=== PATIENT | female | born 1950 | race Caucasian/White ===

== ENCOUNTER 2021-10-31 13:30 | Inpatient (IN) ==
[2021-10-31] MEDS ORDERED: Naloxone 0.4 MG/ML INJ IVP PRN ×2 (16:12→19:42)
[2021-10-31] MEDS ORDERED: *HR* Promethazine 25 MG/ML VIAL IM PRN (16:12)
[2021-10-31] MEDS ORDERED: Ondansetron 4 MG/2 ML VIAL IVP PRN ×2 (16:12→19:42)
[2021-10-31] MEDS ORDERED: *HR* FentaNYL (PF) 100 MCG/2 ML VIAL IVP PRN (18:22)
[2021-10-31] MEDS ORDERED: Ketorolac 30 MG/ML VIAL IVP PRN (18:22)
[2021-10-31] MEDS ORDERED: *HR* HYDROcodone/Acet 7.5/325 mg TABLET PO PRN (18:22)
[2021-10-31] MEDS ORDERED: *HR* Propofol 200 MG/20 ML VIAL IVP ONE (18:42)
[2021-10-31] MEDS ORDERED: Ondansetron 4 MG/2 ML VIAL ONE (18:43)
[2021-10-31] MEDS ORDERED: Lidocaine -MPF 2% 5 ML VIAL ONE (18:43)
[2021-10-31] MEDS ORDERED: Iopamidol - 300 50 ML VIAL ONE (18:46)
[2021-10-31] MEDS ORDERED: *HR* FentaNYL (PF) 100 MCG/2 ML VIAL ONE (19:25)
[2021-10-31] MEDS ORDERED: *HR* Succinylcholine 200 MG/10 ML VIAL IVP ONE (19:26)
[2021-10-31] MEDS ORDERED: Lidocaine HCL 4 ML Topical Solution (Laryng-O-Jet Kit Sterile Pak) TP ONE (19:39)
[2021-10-31] MEDS ORDERED: Albuterol 2.5 MG/3 ML NEBULIZER IH PRN (19:42)
[2021-10-31] MEDS ORDERED: Nitroglycerin 0.4 MG TAB.SUBL SL PRN (19:42)
[2021-10-31] MEDS ORDERED: Ipratropium Neb 0.5 MG NEBULIZER IH PRN (19:42)
[2021-10-31] MEDS ORDERED: CeFAZolin Syr 2,000MG/20 ML 2,000 MG/20 ML SYRINGE IVPB ONE (19:45)
[2021-10-31] MEDS ORDERED: Acetaminophen IV 1,000 MG/100 ML BAG IVPB ONE (19:52)
[2021-10-31] MEDS ORDERED: *HR* Labetalol 20 MG/4 ML SYRINGE IVP ONE (21:06)
[2021-10-31] MEDS ORDERED: Hyoscyamine SL 0.125 MG TAB.SUBL SL ONE (21:30)
[2021-10-31] MEDS: 0.9 % Sodium Chloride 1,000 ML IVC SCH ×2 (22:31)
[2021-11-01] MEDS: 0.9 % Sodium Chloride 1,000 ML IVC SCH ×4 (00:55→13:49)
[2021-11-01 01:40] LABS: Basophils % 0.2 %; Hematocrit 37.6 % (35.3-44.9); Hemoglobin 12.1 g/dL (11.5-15.4); Immature Granulocytes % 0.5 % (0-4); Lymphocytes # 0.4 K/mcL (0.6-4.6); Lymphocytes % 3.1 %; Mean Corpuscular HGB Conc 32.2 g/dL (31.6-35.5); Mean Corpuscular Hemoglobin 29.7 pg (28.0-33.3); Mean Corpuscular Volume 92.2 fL (83.0-100.0); Mean Platelet Volume 10.1 fL (9.4-12.4); Monocytes # 0.5 K/mcL (0.0-1.3); Monocytes % 4.1 %; Neutrophils # 11.7 K/mcL (1.6-8.9); Platelet Count 275 K/mcL (140-400); Red Blood Count 4.08 M/mcL (3.82-4.97); Red Cell Distribution Width 12.1 % (11.5-14.5); Segmented Neutrophils % 92.1 %; White Blood Count 12.7 K/mcL (4.3-11.1)
[2021-11-01 02:00] LABS: Potassium 3.4 mEq/L (3.5-5.1)
[2021-11-01 02:01] LABS: Albumin 3.2 g/dL (3.5-5.7); Bilirubin,Total 0.4 mg/dL (0.3-1.0); Calcium 8.2 mg/dL (8.6-10.3); Globulin 3.3 g/dL (2.4-3.5); Total Protein 6.5 g/dL (6.4-8.9)
[2021-11-01] MEDS ORDERED: *HR* OxyCODONE Immed Rel 5 MG TABLET PO ONE (03:53)
[2021-11-01] MEDS ORDERED: Acetaminophen IV 1,000 MG/100 ML BAG IVPB ONE (05:35)
[2021-11-01] MEDS ORDERED: *HR* OxyCODONE/APAP 5/325 TABLET PO PRN (06:34)
[2021-11-01] MEDS ORDERED: *HR* OxyCODONE/APAP 5/325 TABLET PO STA (06:34)
[2021-11-01] MEDS: Hyoscyamine SL 0.125 MG TAB.SUBL SL PRN ×2 (06:38→15:45)
[2021-11-01] MEDS ORDERED: Piperacillin/Tazobactam 3.375 GM in 0.9 % Sodium Chloride Mini Bag 100 ML IVPB SCH (08:00)
[2021-11-01] MEDS ORDERED: cefTRIAXone 1,000 MG in 0.9 % Sodium Chloride 10 ML IVP SCH (09:00)
[2021-11-01] MEDS: amLODIPine 5 MG TABLET PO SCH (09:05)
[2021-11-01] MEDS: cefTRIAXone 1,000 MG in 0.9 % Sodium Chloride 10 ML IVP SCH (09:45)
[2021-11-01] MEDS: *HR* HYDROcodone/Acet 5/325 mg TABLET PO PRN (17:55)
[2021-11-02] MEDS: 0.9 % Sodium Chloride 1,000 ML IVC SCH ×2 (06:26→08:19)
[2021-11-02] MEDS: amLODIPine 5 MG TABLET PO SCH (08:20)
[2021-11-02] MEDS: *HR* HYDROcodone/Acet 5/325 mg TABLET PO PRN (08:20)
[2021-11-02] MEDS ORDERED: [UNRECOGNIZED DRUG - OTHER] PO SCH (09:00)
[2021-11-02] MEDS ORDERED: Aspirin Enteric Coated 81 MG Tablet PO SCH (09:00)
[2021-11-02] MEDS ORDERED: Cholecalciferol (D-3) 1,000 UNIT (25MCG) TABLET PO SCH (09:00)
[2021-11-02] MEDS ORDERED: B12 PO SCH (09:00)
[2021-11-02 09:30] LABS: Basophils % 0.2 %; Eosinophils % 0.4 %; Hemoglobin 10.6 g/dL (11.5-15.4); Immature Granulocytes % 1.6 % (0-4); Lymphocytes # 1.1 K/mcL (0.6-4.6); Lymphocytes % 10.4 %; Mean Corpuscular HGB Conc 33.1 g/dL (31.6-35.5); Mean Corpuscular Hemoglobin 29.9 pg (28.0-33.3); Mean Corpuscular Volume 90.4 fL (83.0-100.0); Mean Platelet Volume 9.7 fL (9.4-12.4); Monocytes # 0.8 K/mcL (0.0-1.3); Monocytes % 7.6 %; Neutrophils # 8.6 K/mcL (1.6-8.9); Platelet Count 245 K/mcL (140-400); Red Blood Count 3.54 M/mcL (3.82-4.97); Red Cell Distribution Width 12.3 % (11.5-14.5); Segmented Neutrophils % 79.8 %; White Blood Count 10.7 K/mcL (4.3-11.1)
[2021-11-02] MEDS: cefTRIAXone 1,000 MG in 0.9 % Sodium Chloride 10 ML IVP SCH (09:35)
[2021-11-02 09:52] LABS: Alanine Aminotransferase 20 Units/L (7-52); Albumin 2.9 g/dL (3.5-5.7); Alkaline Phosphatase 79 Units/L (34-104); Aspartate Amino Transferase 28 Units/L (13-39); BUN/Creatinine Ratio 21 (6-26); Bilirubin,Total 0.4 mg/dL (0.3-1.0); Blood Urea Nitrogen 16 mg/dL (8-23); Calcium 8.5 mg/dL (8.6-10.3); Carbon Dioxide 24 mEq/L (23-29); Chloride 108 mEq/L (98-107); Globulin 2.9 g/dL (2.4-3.5); Glucose 125 mg/dL (70-105); Osmolality,Calculated 291 (280-300); Potassium 3.4 mEq/L (3.5-5.1); Sodium 139 mEq/L (136-145); Total Protein 5.8 g/dL (6.4-8.9); eGFR For African Americans > 60 (> 60); eGFR For Non-African Americans > 60 (> 60)
[2021-11-02 11:03] VITALS: BP 142/80; PULSE 75; TEMP 97.9; O2SAT 98
[2021-11-02] MEDS ORDERED: Potassium Chloride Elixir 20 MEQ/15 ML UDC PO ONE (12:02)
== END 2021-11-02 14:30 | disposition home or self-care (01) | DRG 854 ==
LOC: 3BNU → SUATTDRO 15:20
PROVIDERS: ADMIT Family Medicine; ATTEND Nurse Practitioner